=== PATIENT | male | born 1975 | race Two or more races ===

== ENCOUNTER 2017-05-11 07:03 | Emergency (ER) | payer MEDICAID ==
[~2017-05-11] VITALS: Ht 180.3 cm; Wt 91.5 kg
[~2017-05-11 07:03] MED LIST: ARIP5TAB4 PO; CYCL-1 PO; DIVA500T7 PO; WEL75T PO
[2017-05-11] MEDS ORDERED: normal saline 1000ML IV soln IVB ONE (07:40)
[2017-05-11] MEDS ORDERED: ondansetron/PF 4mg/2ml inj IV ONE (07:45)
[2017-05-11] MEDS ORDERED: ketorolac trometh. 30mg/ml inj. IV ONE (07:45)
[2017-05-11] MEDS ORDERED: CefTRIAXone 1 gm/50ml D5W ADV 50 ML IV ONE (07:45)
[2017-05-11] MEDS ORDERED: azithromycin 250mg tablet PO ONE (07:45)
[2017-05-11 07:59] LABS: BASOPHILS % (AUTO) 0.1 % (0-1); EOSINOPHILS # (AUTO) 0.2 X10'3 (0-0.9); EOSINOPHILS % (AUTO) 1.8 % (0-6); HEMATOCRIT 48.5 % (42.0-52.0); HEMOGLOBIN 15.8 g/dl (14.0-17.9); LYMPHOCYTES # (AUTO) 1.9 X10'3 (1.1-4.8); LYMPHOCYTES % (AUTO) 18.7 % (21-51); MEAN CORPUSCULAR HEMOGLOBIN 28.2 PG (27.0-31.0); MEAN CORPUSCULAR HGB CONC 32.6 % (33.0-36.5); MEAN CORPUSCULAR VOLUME 86.5 FL (78-98); MEAN PLATELET VOLUME 9.2 FL (7.4-10.4); MONOCYTES # (AUTO) 0.3 X10'3 (0-0.9); NEUTROPHILS # (AUTO) 7.9 X10'3 (1.8-7.7); NEUTROPHILS % (AUTO) 76.4 % (42-75); PLATELET COUNT 210 X10'3 (140-440); RED BLOOD COUNT 5.61 X10'6 (4.70-6.10); RED CELL DISTRIBUTION WIDTH 13.6 % (11.5-14.5); WHITE BLOOD COUNT 10.4 X10'3 (4.5-11.0)
[2017-05-11 08:00] LABS: CLARITY,URINE Clear (Clear); COLOR,URINE Yellow (Yellow); GLUCOSE, URINE Negative (Neg); KETONES,URINE Negative (Neg); LEUKOCYTE ESTERASE ,URINE Negative (Neg); NITRITES, URINE Negative (Neg); OCCULT BLOOD,URINE Small (Neg); PROTEIN,URINE Negative (Neg); UROBILINOGEN,URINE 0.2 E.U/dL (0.2-1.0)
[2017-05-11 08:02] LABS: UA COLLECTION TYPE CLN CATCH MIDSTREAM
[2017-05-11 08:11] LABS: BACTERIA,URINE NONE SEEN /HPF (Neg); MUCUS STRANDS NONE SEEN /LPF (Neg); RBC,URINE 0-2 /HPF (0-2); SQUAMOUS EPITHELIAL CELL,UR FEW /LPF (FEW); WBC,URINE NONE SEEN /HPF (0-4)
[2017-05-11 08:28] LABS: ALANINE AMINOTRANSFERASE 28 U/L (12-78); ALBUMIN/GLOBULIN RATIO 1.4 (1.1-1.5); ALKALINE PHOSPHATASE 77 IU/L (46-116); ANION GAP 10 (8-16); ASPARTATE AMINO TRANSFERASE 14 U/L (10-37); BILIRUBIN,TOTAL 0.3 MG/DL (0.1-1.0); BLOOD UREA NITROGEN 18 MG/DL (7-18); BUN/CREATININE RATIO 16.8 (5.4-32.0); CALCIUM 8.4 MG/DL (8.5-10.1); CHLORIDE 105 MMOL/L (99-107); CREATININE 1.07 MG/DL (0.60-1.10); GLUCOSE 102 MG/DL (70-104); LIPASE 107 U/L (73-393); POTASSIUM 4.2 MMOL/L (3.5-5.1); SODIUM 140 MMOL/L (135-145); TOTAL CARBON DIOXIDE 25.4 MMOL/L (24-32); TOTAL PROTEIN 6.9 G/DL (6.4-8.2); eGFR 76 ML/MIN
[2017-05-11] MEDS ORDERED: AZIT-63 PO (09:37)
[2017-05-11 10:08] VITALS: BP 129/77
== END 2017-05-11 10:10 | disposition home or self-care (01) ==
LOC: ER 07:03
DX: J20.9 Acute bronchitis, unspecified (principal); N50.89 Other specified disorders of the male genital organs; J02.9 Acute pharyngitis, unspecified; R11.0 Nausea; R10.13 Epigastric pain; F17.210 Nicotine dependence, cigarettes, uncomplicated; F12.10 Cannabis abuse, uncomplicated
CPT/HCPCS: 36415; 71020; 80053; 81001; 83690; 85025; 93005; 96361; 96374; 96375; 99285; J0696; J1885; J2405; J7030

== ENCOUNTER 2017-12-05 10:03 | Emergency (ER) | payer OTHER, MEDICAID ==
[~2017-12-05] VITALS: Ht 180.3 cm; Wt 97.7 kg
[2017-12-05 10:47] VITALS: BP 129/76
[2017-12-05] MEDS ORDERED: ondansetron 4mg rapidly disintigrating tab PO ONE (11:15)
[2017-12-05] MEDS ORDERED: HYDROmorphone 1 mg/ml syringe IM ONE (11:15)
[2017-12-05] MEDS ORDERED: CYCL-1 PO (11:45)
[2017-12-05] MEDS ORDERED: IBUP-1984 PO (11:45)
[2017-12-05] MEDS ORDERED: HYDROcodone/acetaminophen 10/325mg tab PO ONE (12:05)
== END 2017-12-05 12:29 | disposition home or self-care (01) ==
LOC: ER 10:03
DX: M54.5 Low back pain (principal); F12.10 Cannabis abuse, uncomplicated; Z79.899 Other long term (current) drug therapy; V89.2XXA Person injured in unspecified motor-vehicle accident, traffic, initial encounter; Y93.89 Activity, other specified; Y92.89 Other specified places as the place of occurrence of the external cause; Y99.8 Other external cause status
CPT/HCPCS: 72110; 99284

== ENCOUNTER 2018-03-20 07:48 | Emergency (ER) | payer MEDICAID ==
[~2018-03-20] VITALS: Ht 180.3 cm; Wt 95.5 kg
[~2018-03-20 07:48] MED LIST changes: +DIVA-76 PO; -DIVA500T7 PO
[2018-03-20] MEDS ORDERED: iohexol 300mg/ml 100ml inj. ONE (08:47)
[2018-03-20 08:56] LABS: BASOPHILS % (AUTO) 0.2 % (0-1); EOSINOPHILS # (AUTO) 0.1 X10'3 (0-0.9); EOSINOPHILS % (AUTO) 0.6 % (0-6); HEMATOCRIT 45.2 % (42.0-52.0); HEMOGLOBIN 15.3 g/dl (14.0-17.9); LYMPHOCYTES # (AUTO) 1.5 X10'3 (1.1-4.8); LYMPHOCYTES % (AUTO) 12.1 % (21-51); MEAN CORPUSCULAR HEMOGLOBIN 29.1 PG (27.0-31.0); MEAN CORPUSCULAR HGB CONC 33.8 % (33.0-36.5); MEAN CORPUSCULAR VOLUME 85.9 FL (78-98); MEAN PLATELET VOLUME 9.2 FL (7.4-10.4); MONOCYTES # (AUTO) 0.4 X10'3 (0-0.9); MONOCYTES % (AUTO) 3.5 % (2-12); NEUTROPHILS % (AUTO) 83.6 % (42-75); PLATELET COUNT 242 X10'3 (140-440); RED BLOOD COUNT 5.26 X10'6 (4.70-6.10); RED CELL DISTRIBUTION WIDTH 13.4 % (11.5-14.5)
[2018-03-20 09:15] LABS: ALANINE AMINOTRANSFERASE 32 U/L (12-78); ALBUMIN 4.2 G/DL (3.4-5.0); ALBUMIN/GLOBULIN RATIO 1.4 (1.1-1.5); ALKALINE PHOSPHATASE 90 IU/L (46-116); ANION GAP 10 (8-16); ASPARTATE AMINO TRANSFERASE 22 U/L (10-37); BILIRUBIN,TOTAL 0.4 MG/DL (0.1-1.0); BLOOD UREA NITROGEN 16 MG/DL (7-18); CALCIUM 8.8 MG/DL (8.5-10.1); CHLORIDE 105 MMOL/L (99-107); CREATININE 0.94 MG/DL (0.60-1.10); GLUCOSE 112 MG/DL (70-104); LIPASE 84 U/L (73-393); POTASSIUM 4.1 MMOL/L (3.5-5.1); SODIUM 140 MMOL/L (135-145); TOTAL CARBON DIOXIDE 24.8 MMOL/L (24-32); TOTAL PROTEIN 7.1 G/DL (6.4-8.2); eGFR 88 ML/MIN
[2018-03-20] MEDS ORDERED: morphine 4 MG/ML inj SYRINge IV ONE (09:20)
[2018-03-20] MEDS ORDERED: ketorolac trometh. 30mg/ml inj. IM ONE (10:10)
[2018-03-20 10:28] VITALS: BP 132/83
[2018-03-20] MEDS ORDERED: HYDR-3965 PO (10:29)
== END 2018-03-20 11:00 | disposition home or self-care (01) ==
LOC: ER 07:48
DX: S80.11XA Contusion of right lower leg, initial encounter (principal); S46.912A Strain of unspecified muscle, fascia and tendon at shoulder and upper arm level, left arm, initial encounter; R07.89 Other chest pain; M54.2 Cervicalgia; R10.12 Left upper quadrant pain; F17.200 Nicotine dependence, unspecified, uncomplicated; F12.10 Cannabis abuse, uncomplicated; V40.0XXA Car driver injured in collision with pedestrian or animal in nontraffic accident, initial encounter; Y93.89 Activity, other specified; Y92.89 Other specified places as the place of occurrence of the external cause; Y99.8 Other external cause status
CPT/HCPCS: 36415; 71046; 71270; 72040; 73030; 74177; 80053; 83690; 85025; 93005; 96372; 96374; 99285; J1885; J2270; J7030; L0172; Q9967